=== PATIENT | male | born 1960 | race Two or more races ===

== ENCOUNTER 2016-07-08 09:23 | Inpatient (IN) | payer MEDICAID ==
[~2016-07-08] VITALS: Ht 167.6 cm; Wt 106.1 kg
[2016-07-08 10:27] LABS: Urine RBC None Seen /hpf (0 - 3)
[2016-07-08 10:43] LABS: Basophils # (auto) 0 uL; Basophils % (auto) 0.7 % (0.0-2.0); DEFINITIVE VIEW TRANSMISSION; Eosinophils # (auto) 0.7 uL; Eosinophils % (auto) 9.9 % (0.0-7.0); Hematocrit 44.2 % (41.0-53.0); Hemoglobin 15.3 g/dL (13.5-17.5); Lymphocytes # (auto) 1.9 uL; Lymphocytes % (auto) 26.1 % (10.0-50.0); Mean Corpuscular Hemoglobin 29.9 pg (28.0-32.0); Mean Corpuscular Hgb Conc. 34.5 g/dL (32.0-36.0); Mean Corpuscular Volume 86.6 fL (80.0-100.0); Mean Platelet Volume 8.8 fL (7.4-10.4); Monocytes # (auto) 0.5 uL; Monocytes % (auto) 6.2 % (0.0-12.0); Neutrophils # (auto) 4.2 uL; Neutrophils % (auto) 57.1 % (37.0-80.0); Platelet Count (auto) 243 10^3/uL (140-450); Red Cell Distribution Width 13.4 % (11.6-16.0); White Blood Cell 7.4 10^3/uL (4.4-10.8)
[2016-07-08 10:44] LABS: Urine Bilirubin Negative (Negative); Urine Blood Negative /uL (Negative); Urine Color Yellow (Yellow); Urine Glucose Normal (Normal); Urine Ketone Negative (Negative); Urine Mucus FEW (None Seen); Urine Nitrite Negative (Negative); Urine Squamous Epithelial Cell FEW /hpf (<5); Urine Urobilinogen Normal (Negative)
[2016-07-08 10:55] LABS: Albumin 3.6 g/dL (3.4-5.0); BUN/Creatinine Ratio 14.4; Bilirubin, Total 0.5 mg/dL (0.2-1.0); Calcium 8.1 mg/dL (8.5-10.1); Potassium 4.3 mmol/L (3.5-5.1); Total Protein 7.2 g/dL (6.4-8.2)
[2016-07-08] MEDS ORDERED: SODIUM CHLORIDE 0.9% 1,000 ML IVB ONE (10:59)
[2016-07-08 11:36] LABS: Magnesium 2.4 mg/dL (1.6-2.6)
[2016-07-08 11:46] LABS: INR 0.91 (0.9-1.15); Prothrombin Time 9.9 sec (9.37-12.3)
[2016-07-08] MEDS ORDERED: ONDANSETRON HCL 4 MG/2 ML VIAL ONE (13:09)
[2016-07-08] MEDS ORDERED: PROMETHAZINE HCL 25 MG/ML 1ML IV PRN (13:15)
[2016-07-08] MEDS ORDERED: TEMAZEPAM 15 MG CAP PO PRN (13:15)
[2016-07-08] MEDS ORDERED: MORPHINE SULF INJ 2 MG/ML SYRINGE 1ML IV PRN (13:15)
[2016-07-08] MEDS ORDERED: ONDANSETRON HCL 4 MG/2 ML VIAL IV ONE (13:15)
[2016-07-08] MEDS ORDERED: LORazepam 0.5 MG TAB PO PRN (13:15)
[2016-07-08] MEDS ORDERED: ACETAMINOPHEN 500 MG TAB PO PRN (13:15)
[2016-07-08] MEDS: SODIUM CHLORIDE 0.9% 1,000 ML IV SCH ×2 (13:16→22:50)
[2016-07-08] MEDS ORDERED: PANTOPRAZOLE 40 MG TAB PO ONE (13:30)
[2016-07-08] MEDS ORDERED: FAMOTIDINE 20 MG TAB PO ONE (13:30)
[2016-07-08] MEDS: HYDROcodone-ACET 5/325MG TAB PO PRN (13:47)
[2016-07-08 16:00] VITALS: BP 117/67
[2016-07-08 17:00] VITALS: BP 123/70
[2016-07-08] MEDS: metroNIDAZOLE 500MG/100ML 100 ML IV SCH (17:22)
[2016-07-08] MEDS: FAMOTIDINE 20 MG TAB PO SCH (21:34)
[2016-07-08 23:16] VITALS: BP_SYST 112; BP_SYST 128; BP_DIAS 76
[2016-07-09] MEDS: metroNIDAZOLE 500MG/100ML 100 ML IV SCH ×4 (02:00→11:00)
[2016-07-09] MEDS: HYDROcodone-ACET 5/325MG TAB PO PRN (03:22)
[2016-07-09 05:23] VITALS: BP 112/74
[2016-07-09 07:13] LABS: Basophils # (auto) 0 uL; Basophils % (auto) 0.6 % (0.0-2.0); Eosinophils # (auto) 0.7 uL; Eosinophils % (auto) 9.5 % (0.0-7.0); Hemoglobin 14.9 g/dL (13.5-17.5); Lymphocytes # (auto) 1.9 uL; Lymphocytes % (auto) 27.1 % (10.0-50.0); Mean Corpuscular Hemoglobin 30.5 pg (28.0-32.0); Mean Corpuscular Hgb Conc. 34.7 g/dL (32.0-36.0); Mean Corpuscular Volume 87.8 fL (80.0-100.0); Mean Platelet Volume 9.1 fL (7.4-10.4); Monocytes # (auto) 0.6 uL; Monocytes % (auto) 8.1 % (0.0-12.0); Neutrophils # (auto) 3.8 uL; Neutrophils % (auto) 54.7 % (37.0-80.0); Platelet Count (auto) 216 10^3/uL (140-450); Red Cell Distribution Width 13.4 % (11.6-16.0); White Blood Cell 6.9 10^3/uL (4.4-10.8)
[2016-07-09 07:21] LABS: Albumin 3.2 g/dL (3.4-5.0); BUN/Creatinine Ratio 14.5; Bilirubin, Total 0.7 mg/dL (0.2-1.0); Calcium 7.9 mg/dL (8.5-10.1); Potassium 4.1 mmol/L (3.5-5.1); Total Protein 6.2 g/dL (6.4-8.2)
[2016-07-09 08:00] VITALS: BP 112/74
[2016-07-09 09:00] VITALS: BP 132/65
[2016-07-09] MEDS: SODIUM CHLORIDE 0.9% 1,000 ML IV SCH (09:41)
[2016-07-09] MEDS: FAMOTIDINE 20 MG TAB PO SCH (09:41)
[2016-07-09] MEDS ORDERED: LEVOFLOXACIN 500MG 100 ML IV SCH (10:00)
[2016-07-09] MEDS ORDERED: PANTOPRAZOLE 40 MG TAB PO SCH (10:00)
[2016-07-09 11:52] VITALS: BP 111/75
== END 2016-07-09 12:45 | disposition home or self-care (01) | DRG 244 ==
LOC: ER 09:23 → OVERFLOW 09:24 → WEST WING 16:53
PROVIDERS: ADMIT Internal Medicine; ATTEND Internal Medicine
DX: K57.92 Diverticulitis of intestine, part unspecified, without perforation or abscess without bleeding (principal); E87.0 Hyperosmolality and hypernatremia; K76.89 Other specified diseases of liver; E87.1 Hypo-osmolality and hyponatremia; K57.30 Diverticulosis of large intestine without perforation or abscess without bleeding; K42.9 Umbilical hernia without obstruction or gangrene; J98.11 Atelectasis; K43.9 Ventral hernia without obstruction or gangrene; M47.814 Spondylosis without myelopathy or radiculopathy, thoracic region; N28.1 Cyst of kidney, acquired; Z82.49 Family history of ischemic heart disease and other diseases of the circulatory system; Z90.49 Acquired absence of other specified parts of digestive tract; Z87.442 Personal history of urinary calculi; M47.817 Spondylosis without myelopathy or radiculopathy, lumbosacral region; Z88.6 Allergy status to analgesic agent; Z88.8 Allergy status to other drugs, medicaments and biological substances
CPT/HCPCS: 36415; 71010; 74176; 76775; 80053; 81001; 82150; 83690; 83735; 85025; 85610; 85652; 85730; 87081; 87086; 93005; 94761; 96361; 96374; J1956; J2405; J3490

== ENCOUNTER 2023-06-07 10:49 | Inpatient (IN) | payer MEDICAID, OTHER ==
[~2023-06-07] VITALS: Ht 167.6 cm; Wt 98.4 kg
[~2023-06-07 10:49] MED LIST: ASPI-325 PO; ATOR20TA50 PO; BLOO1KIT60 XX; CARV3.1240 PO; CHOL1CAP21 PO; CLON0.2T PO; CLOP75TA70 PO; FLUT500M2; LANC-347 XX; METF-370 PO; MONT-8 PO
[2023-06-07 12:59] LABS: Basophils # (auto) 0.1 10 ^3/uL (0-0.2); Basophils % (auto) 0.5 % (0.0-2.0); Eosinophils # (auto) 0.1 10 ^3/uL (0-0.8); Eosinophils % (auto) 0.6 % (0.0-7.0); Hematocrit 47.7 % (41.0-53.0); Lymphocytes # (auto) 0.7 10 ^3/uL (0.4-5.4); Lymphocytes % (auto) 5.7 % (10.0-50.0); Mean Corpuscular Hemoglobin 29.2 pg (28.0-32.0); Mean Corpuscular Hgb Conc. 33.5 g/dL (32.0-36.0); Mean Corpuscular Volume 87.1 fL (80.0-100.0); Monocytes # (auto) 0.6 10 ^3/uL (0-1.3); Monocytes % (auto) 4.7 % (0.0-12.0); Neutrophils # (auto) 10.4 10 ^3/uL (1.6-8.6); Neutrophils % (auto) 88.5 % (37.0-80.0); Nucleated Red Blood Cells % 0.1 %; Red Blood Cells 5.48 10^6/uL (4.5-5.90); Red Cell Distribution Width 13.6 % (11.8-14.3); White Blood Cell 11.8 10^3/uL (4.4-10.8)
[2023-06-07 13:49] LABS: Alanine Aminotransferase 22 U/L (7-40); Alkaline Phosphatase 100 U/L (46-116); Anion Gap 6 (5-15); Aspartate Aminotransferase 17 U/L (13-40); BUN/Creatinine Ratio 21.3 (10.0-20.0); Bilirubin, Total 1.5 mg/dL (0.2-1.0); Blood Urea Nitrogen 20 mg/dL (9-23); Calcium 9.6 mg/dL (8.7-10.4); Carbon Dioxide 27 mmol/L (20-30); Chloride 105 mmol/L (98-107); Glucose 129 mg/dL (74-106); Potassium 4.4 mmol/L (3.5-5.1); Sodium 138 mmol/L (136-145); Total Protein 7.8 g/dL (5.7-8.2)
[2023-06-07 14:39] LABS: Magnesium 2.1 mg/dL (1.6-2.6)
[2023-06-07 18:49] LABS: INR 1.08 (0.9-1.15); Partial Thromboplastin Time 25.2 SEC (24.5-34.5); Prothrombin Time 11.4 sec (9.3-11.8)
[2023-06-07] MEDS ORDERED: DOCUSATE SOD 100 MG CAP PO PRN (20:00)
[2023-06-07] MEDS ORDERED: NITROGLYCERIN 0.4 MG SL TAB SL PRN (20:00)
[2023-06-07] MEDS ORDERED: ONDANSETRON HCL 4 MG/2 ML VIAL IV PRN (20:00)
[2023-06-07] MEDS ORDERED: PIPERACILLIN-TAZOB 3.375GM 100 ML IV SCH (20:00)
[2023-06-07] MEDS ORDERED: DEXTROSE (50%) 50ML SYRG IV PRN (20:00)
[2023-06-07] MEDS ORDERED: MORPHINE SULFATE INJ 2 MG/ml SYRG IV PRN ×2 (20:00)
[2023-06-07] MEDS ORDERED: hydrALAZINE HCL 20 MG/ML VL IV PRN (20:15)
[2023-06-07] MEDS: SODIUM CHLORIDE 0.9% 1,000 ML IVB ONE (21:51)
[2023-06-07] MEDS ORDERED: metroNIDAZOLE 500MG/100ML 100 ML IV SCH (22:00)
[2023-06-07] MEDS: ATORVASTATIN 20 MG TAB PO SCH (22:02)
[2023-06-07] MEDS: ONDANSETRON HCL 4 MG/2 ML VIAL IV ONE (22:04)
[2023-06-07] MEDS: SODIUM CHLORIDE 0.9% 1,000 ML IV SCH (22:04)
[2023-06-07] MEDS: PIPERACILLIN-TAZOB 3.375GM 100 ML IV ONE (22:04)
[2023-06-08] VITALS (10 sets, daily range): BP systolic 106–127; BP diastolic 58–89; PULSE 60–102; RESP 16–19; TEMP 97.9–98.4; O2SAT 91–99
[2023-06-08] MEDS: PIPERACILLIN-TAZOB 3.375GM 100 ML IV SCH (05:11)
[2023-06-08] MEDS: ACCU-CHEK COMFORT CURVE STRIP VI SCH (05:33)
[2023-06-08] MEDS: InsuLIN REG 1unit/0.01ml Soln (100units/ml) SC SCH (05:34)
[2023-06-08 06:13] LABS: Anion Gap 8 (5-15); Basophils # (auto) 0 10 ^3/uL (0-0.2); Basophils % (auto) 0.2 % (0.0-2.0); Carbon Dioxide 25 mmol/L (20-30); Chloride 107 mmol/L (98-107); Eosinophils # (auto) 0.2 10 ^3/uL (0-0.8); Eosinophils % (auto) 2.4 % (0.0-7.0); Hematocrit 44.6 % (41.0-53.0); Hemoglobin 15.2 g/dL (13.5-17.5); Lymphocytes # (auto) 1.3 10 ^3/uL (0.4-5.4); Lymphocytes % (auto) 18.1 % (10.0-50.0); Mean Corpuscular Hemoglobin 29.9 pg (28.0-32.0); Mean Corpuscular Hgb Conc. 34.1 g/dL (32.0-36.0); Mean Corpuscular Volume 87.6 fL (80.0-100.0); Monocytes # (auto) 0.9 10 ^3/uL (0-1.3); Monocytes % (auto) 11.7 % (0.0-12.0); Neutrophils # (auto) 4.9 10 ^3/uL (1.6-8.6); Neutrophils % (auto) 67.6 % (37.0-80.0); Nucleated Red Blood Cells % 0.2 %; Potassium 3.6 mmol/L (3.5-5.1); Red Blood Cells 5.09 10^6/uL (4.5-5.90); Red Cell Distribution Width 13.6 % (11.8-14.3); Sodium 140 mmol/L (136-145); White Blood Cell 7.3 10^3/uL (4.4-10.8)
[2023-06-08 06:15] LABS: Calcium 8.9 mg/dL (8.5-10.1)
[2023-06-08 06:20] LABS: BUN/Creatinine Ratio 18.3 (10.0-20.0); Blood Urea Nitrogen 17 mg/dL (9-23); Glucose 128 mg/dL (74-106)
[2023-06-08] MEDS ORDERED: cefTRIAXone 1GM/50ML D5W 50 ML IV SCH (09:00)
[2023-06-08] MEDS: CARVEDILOL 3.125 MG TAB PO SCH (10:00)
[2023-06-08] MEDS: PANTOPRAZOLE 40 MG/10 ML VIAL INJ IV SCH (10:26)
[2023-06-08 10:37] LABS: Phosphorus 2.9 mg/dL (2.4-5.1)
[2023-06-08 11:02] LABS: Magnesium 2.4 mg/dL (1.6-2.6)
[2023-06-08] MEDS: LEVALBUTEROL HCL 1.25 MG/3 ML NEB NEB SCH (12:00)
[2023-06-08] MEDS: IPRATROPIUM BROM 0.5 MG/2.5ML INH SOL NEB SCH (12:00)
[2023-06-08] MEDS: ASPirin 81 mg TAB PO ONE (12:47)
[2023-06-08] MEDS ORDERED: LEVALBUTEROL HCL 1.25 MG/3 ML NEB NEB PRN (13:15)
[2023-06-08] MEDS ORDERED: IPRATROPIUM BROM 0.5 MG/2.5ML INH SOL NEB PRN (13:15)
[2023-06-08 15:49] LABS: Urine Bacteria None Seen /hpf (None Seen)
[2023-06-08 16:05] LABS: Urine Blood Negative /uL (Negative); Urine Clarity Clear (Clear); Urine Color Light-Yellow (Yellow); Urine Protein, UAD Negative (Negative); Urine Specific Gravity 1.028 (1.001-1.035); Urine Urobilinogen Normal (Negative); Urine WBC 1 /hpf (0 - 3); Urine pH 5.5 (5.0-9.0)
[2023-06-08 16:24] LABS: Amphetamine Screen, Urine Neg (NEGATIVE); Barbiturate Scree,Urine Neg (NEGATIVE); Cocaine Screen, Urine Neg (NEGATIVE)
[2023-06-08 16:25] LABS: Benzodiazephine Screen, Urine Neg (NEGATIVE); Cannabinoid Screen, Urine Neg (NEGATIVE); Opiate Scree,Urine Neg (NEGATIVE); Phencyclidine Screen, Urine Neg (NEGATIVE)
[2023-06-08] MEDS: MONTELUKAST SODIUM 10 MG TAB PO SCH (21:27)
[2023-06-09] VITALS (11 sets, daily range): BP systolic 106–145; BP diastolic 55–72; PULSE 56–65; RESP 16–20; TEMP 97.5–99; O2SAT 95–99
[2023-06-09 07:05] LABS: Alanine Aminotransferase 19 U/L (7-40); Albumin 3.8 g/dL (3.2-4.8); Alkaline Phosphatase 72 U/L (46-116); Anion Gap 3 (5-15); Aspartate Aminotransferase 17 U/L (13-40); BUN/Creatinine Ratio 10.3 (10.0-20.0); Blood Urea Nitrogen 10 mg/dL (9-23); Calcium 8.5 mg/dL (8.7-10.4); Carbon Dioxide 28 mmol/L (20-30); Chloride 109 mmol/L (98-107); Glucose 126 mg/dL (74-106); Magnesium 2.4 mg/dL (1.6-2.6); Potassium 4.1 mmol/L (3.5-5.1); Sodium 140 mmol/L (136-145)
[2023-06-09 07:06] LABS: Bilirubin, Total 1.1 mg/dL (0.2-1.0)
[2023-06-09 07:30] LABS: Basophils # (auto) 0 10 ^3/uL (0-0.2); Basophils % (auto) 0.3 % (0.0-2.0); Eosinophils # (auto) 0.3 10 ^3/uL (0-0.8); Eosinophils % (auto) 5.2 % (0.0-7.0); Hematocrit 41.7 % (41.0-53.0); Lymphocytes # (auto) 1.6 10 ^3/uL (0.4-5.4); Lymphocytes % (auto) 24.3 % (10.0-50.0); Mean Corpuscular Hemoglobin 29.5 pg (28.0-32.0); Mean Corpuscular Hgb Conc. 33.5 g/dL (32.0-36.0); Mean Corpuscular Volume 87.9 fL (80.0-100.0); Monocytes # (auto) 0.7 10 ^3/uL (0-1.3); Monocytes % (auto) 10.1 % (0.0-12.0); Neutrophils % (auto) 60.1 % (37.0-80.0); Nucleated Red Blood Cells % 0.1 %; Red Blood Cells 4.75 10^6/uL (4.5-5.90); Red Cell Distribution Width 13.9 % (11.8-14.3); White Blood Cell 6.7 10^3/uL (4.4-10.8)
[2023-06-09 07:52] LABS: Phosphorus 2.8 mg/dL (2.4-5.1)
[2023-06-09] MEDS: ASPirin 81 mg TAB PO SCH (10:30)
[2023-06-09] MEDS: CALCIUM GLUC 1,000mg/50ml-NS 50 ML IV ONE (20:50)
[2023-06-10] VITALS (10 sets, daily range): BP systolic 126–140; BP diastolic 68–82; PULSE 54–70; RESP 16–18; TEMP 97.8–98.4; O2SAT 95–98
[2023-06-10 05:35] LABS: Basophils # (auto) 0 10 ^3/uL (0-0.2); Basophils % (auto) 0.4 % (0.0-2.0); Eosinophils # (auto) 0.4 10 ^3/uL (0-0.8); Eosinophils % (auto) 4.3 % (0.0-7.0); Hematocrit 42.4 % (41.0-53.0); Hemoglobin 14.3 g/dL (13.5-17.5); Lymphocytes # (auto) 1.8 10 ^3/uL (0.4-5.4); Lymphocytes % (auto) 21.9 % (10.0-50.0); Mean Corpuscular Hemoglobin 29.5 pg (28.0-32.0); Mean Corpuscular Hgb Conc. 33.9 g/dL (32.0-36.0); Monocytes # (auto) 0.7 10 ^3/uL (0-1.3); Monocytes % (auto) 8.6 % (0.0-12.0); Neutrophils # (auto) 5.5 10 ^3/uL (1.6-8.6); Neutrophils % (auto) 64.8 % (37.0-80.0); Nucleated Red Blood Cells % 0.1 %; Red Blood Cells 4.87 10^6/uL (4.5-5.90); Red Cell Distribution Width 13.3 % (11.8-14.3); White Blood Cell 8.4 10^3/uL (4.4-10.8)
[2023-06-10] MEDS: PIPERACILLIN-TAZOB 3.375GM 100 ML IV SCH (06:29)
[2023-06-10 06:35] LABS: Alanine Aminotransferase 23 U/L (7-40); Alkaline Phosphatase 81 U/L (46-116); Chloride 106 mmol/L (98-107); Potassium 4.1 mmol/L (3.5-5.1); Sodium 140 mmol/L (136-145)
[2023-06-10 06:49] LABS: Albumin 4.1 g/dL (3.2-4.8); Anion Gap 10 (5-15); Aspartate Aminotransferase 38 U/L (13-40); BUN/Creatinine Ratio 7.5 (10.0-20.0); Bilirubin, Total 1.3 mg/dL (0.2-1.0); Blood Urea Nitrogen 7 mg/dL (9-23); Calcium 8.9 mg/dL (8.5-10.1); Carbon Dioxide 24 mmol/L (20-30); Glucose 101 mg/dL (74-106); Total Protein 6.3 g/dL (5.7-8.2)
[2023-06-10 07:03] LABS: Lipase 37 U/L (12-53)
[2023-06-11] VITALS (9 sets, daily range): BP systolic 111–139; BP diastolic 69–77; PULSE 52–93; RESP 16–18; TEMP 36.6; O2SAT 93–99
[2023-06-11 05:29] LABS: Basophils # (auto) 0 10 ^3/uL (0-0.2); Basophils % (auto) 0.6 % (0.0-2.0); Eosinophils # (auto) 0.4 10 ^3/uL (0-0.8); Eosinophils % (auto) 5.9 % (0.0-7.0); Hematocrit 42.2 % (41.0-53.0); Hemoglobin 14.3 g/dL (13.5-17.5); Lymphocytes # (auto) 1.9 10 ^3/uL (0.4-5.4); Lymphocytes % (auto) 24.8 % (10.0-50.0); Mean Corpuscular Hemoglobin 29.3 pg (28.0-32.0); Mean Corpuscular Volume 86.2 fL (80.0-100.0); Monocytes # (auto) 0.7 10 ^3/uL (0-1.3); Monocytes % (auto) 9.8 % (0.0-12.0); Neutrophils # (auto) 4.5 10 ^3/uL (1.6-8.6); Neutrophils % (auto) 58.9 % (37.0-80.0); Nucleated Red Blood Cells % 0.1 %; Red Blood Cells 4.89 10^6/uL (4.5-5.90); Red Cell Distribution Width 13.5 % (11.8-14.3); White Blood Cell 7.6 10^3/uL (4.4-10.8)
[2023-06-11 05:55] LABS: Alanine Aminotransferase 20 U/L (7-40); Alkaline Phosphatase 82 U/L (46-116); Anion Gap 6 (5-15); Aspartate Aminotransferase 21 U/L (13-40); BUN/Creatinine Ratio 6.1 (10.0-20.0); Bilirubin, Total 2.1 mg/dL (0.2-1.0); Blood Urea Nitrogen 6 mg/dL (9-23); Carbon Dioxide 27 mmol/L (20-30); Chloride 107 mmol/L (98-107); Glucose 106 mg/dL (74-106); Lipase 41 U/L (12-53); Potassium 4.2 mmol/L (3.5-5.1); Sodium 140 mmol/L (136-145); Total Protein 6.2 g/dL (5.7-8.2)
[2023-06-11] MEDS ORDERED: LEVO500T91 PO (11:54)
== END 2023-06-11 14:00 | disposition home or self-care (01) | DRG 249 ==
LOC: ER 10:49 → OVERFLOW 20:06 → WEST WING 06-08 04:37
PROVIDERS: ADMIT Internal Medicine; ATTEND Internal Medicine
DX: K52.9 Noninfective gastroenteritis and colitis, unspecified (principal); E11.9 Type 2 diabetes mellitus without complications; E66.9 Obesity, unspecified; I10 Essential (primary) hypertension; E78.00 Pure hypercholesterolemia, unspecified; K57.30 Diverticulosis of large intestine without perforation or abscess without bleeding; J44.9 Chronic obstructive pulmonary disease, unspecified; N40.0 Benign prostatic hyperplasia without lower urinary tract symptoms; Z83.3 Family history of diabetes mellitus; Z86.73 Personal history of transient ischemic attack (TIA), and cerebral infarction without residual deficits; Z87.442 Personal history of urinary calculi; Z88.6 Allergy status to analgesic agent; Z90.49 Acquired absence of other specified parts of digestive tract; Z82.5 Family history of asthma and other chronic lower respiratory diseases; Z82.49 Family history of ischemic heart disease and other diseases of the circulatory system; Z87.891 Personal history of nicotine dependence; Z68.35 Body mass index [BMI] 35.0-35.9, adult
CPT/HCPCS: 36415; 71045; 74177; 76705; 80048; 80053; 80061; 80307; 81001; 82306; 82607; 82962; 83036; 83605; 83690; 83735; 83880; 84100; 84443; 84484; 85025; 85048; 85610; 85730; 87177; 87493; 93005; C9113; G0378; J2405; J2543

== ENCOUNTER 2023-10-24 08:24 | Inpatient (IN) | payer OTHER, MEDICAID ==
[~2023-10-24] VITALS: Ht 167.6 cm; Wt 99.5 kg
[~2023-10-24 08:24] MED LIST changes: +LEVO500T91 PO
[2023-10-24 09:31] LABS: Basophils # (auto) 0.1 10 ^3/uL (0-0.2); Basophils % (auto) 1.1 % (0.0-2.0); Eosinophils # (auto) 0.4 10 ^3/uL (0-0.8); Eosinophils % (auto) 6.9 % (0.0-7.0); Hematocrit 46.7 % (41.0-53.0); Hemoglobin 15.9 g/dL (13.5-17.5); Lymphocytes # (auto) 1.6 10 ^3/uL (0.4-5.4); Lymphocytes % (auto) 28.1 % (10.0-50.0); Mean Corpuscular Hemoglobin 30.1 pg (28.0-32.0); Mean Corpuscular Hgb Conc. 34.1 g/dL (32.0-36.0); Mean Corpuscular Volume 88.3 fL (80.0-100.0); Monocytes # (auto) 0.5 10 ^3/uL (0-1.3); Monocytes % (auto) 8.4 % (0.0-12.0); Neutrophils # (auto) 3.2 10 ^3/uL (1.6-8.6); Neutrophils % (auto) 55.5 % (37.0-80.0); Nucleated Red Blood Cells % 0.1 %; Platelet Count (auto) 222 10^3/uL (140-450); Red Blood Cells 5.29 10^6/uL (4.5-5.90); White Blood Cell 5.8 10^3/uL (4.4-10.8)
[2023-10-24 09:45] LABS: Chloride 108 mmol/L (98-107); Potassium 4.6 mmol/L (3.5-5.1); Sodium 142 mmol/L (136-145)
[2023-10-24 09:46] LABS: Anion Gap 9 (5-15); Calcium 9.4 mg/dL (8.7-10.4); Carbon Dioxide 25 mmol/L (20-30)
[2023-10-24 09:51] LABS: BUN/Creatinine Ratio 16.7 (10.0-20.0); Blood Urea Nitrogen 16 mg/dL (9-23); Glucose 128 mg/dL (74-106)
[2023-10-24] MEDS ORDERED: NITROGLYCERIN 0.4 MG SL TAB SL PRN (12:30)
[2023-10-24] MEDS ORDERED: [UNRECOGNIZED DRUG - OTHER] PO SCH (13:15)
[2023-10-24] MEDS ORDERED: CHOLECALCIFEROL PO SCH (13:15)
[2023-10-24] MEDS ORDERED: cloNIDine HCL 0.1 MG TAB PO PRN (13:45)
[2023-10-24 15:06] LABS: Urine Bacteria None Seen /hpf (None Seen)
[2023-10-24 15:15] LABS: Urine Blood Negative /uL (Negative); Urine Clarity Clear (Clear); Urine Color Light-Yellow (Yellow); Urine Mucus FEW (None Seen); Urine Protein, UAD Negative (Negative); Urine Specific Gravity 1.021 (1.001-1.035); Urine Urobilinogen Normal (Negative); Urine WBC 1 /hpf (0 - 3); Urine pH 5.5 (5.0-9.0)
[2023-10-24] MEDS ORDERED: LORazepam 2MG/ML-1ML VIAL IV PRN (18:45)
[2023-10-24] MEDS ORDERED: DEXTROSE (50%) 50ML SYRG IV PRN (20:15)
[2023-10-24] MEDS: InsuLIN REG 1unit/0.01ml Soln (100units/ml) SC SCH (21:58)
[2023-10-24] MEDS: ACCU-CHEK COMFORT CURVE STRIP VI SCH (21:58)
[2023-10-24] MEDS: ATORVASTATIN 20 MG TAB PO SCH (21:58)
[2023-10-24] MEDS ORDERED: SUCR1TAB PO (22:00)
[2023-10-24] MEDS ORDERED: [UNRECOGNIZED DRUG - CODE] PO (22:00)
[2023-10-24] MEDS ORDERED: ATORVASTATIN 20 MG TAB PO SCH (22:00)
[2023-10-24 22:04] VITALS: BP 136/78; PULSE 54; RESP 19; TEMP 98.1; O2SAT 99
[2023-10-24 22:54] VITALS: PULSE 54; RESP 19; O2SAT 99
[2023-10-25] VITALS (8 sets, daily range): BP systolic 122–134; BP diastolic 59–78; PULSE 52–71; RESP 16–18; TEMP 97.3–98.7; O2SAT 95–99
[2023-10-25 06:24] LABS: Chloride 108 mmol/L (98-107); Potassium 4.2 mmol/L (3.5-5.1); Sodium 141 mmol/L (136-145)
[2023-10-25 06:25] LABS: Anion Gap 5 (5-15); Carbon Dioxide 28 mmol/L (20-30)
[2023-10-25 06:30] LABS: BUN/Creatinine Ratio 15.4 (10.0-20.0); Blood Urea Nitrogen 14 mg/dL (9-23); Glucose 115 mg/dL (74-106); Triglycerides 155 mg/dL (< 150)
[2023-10-25 06:31] LABS: LDL Cholesterol 116 mg/dL (< 100)
[2023-10-25 06:32] LABS: Cholesterol 169 mg/dL (< 200); HDL Cholesterol 30 mg/dL (40-59)
[2023-10-25 06:40] LABS: Basophils # (auto) 0 10 ^3/uL (0-0.2); Basophils % (auto) 0.7 % (0.0-2.0); Eosinophils # (auto) 0.5 10 ^3/uL (0-0.8); Eosinophils % (auto) 6.6 % (0.0-7.0); Hematocrit 43.9 % (41.0-53.0); Hemoglobin 15.3 g/dL (13.5-17.5); Lymphocytes # (auto) 1.8 10 ^3/uL (0.4-5.4); Lymphocytes % (auto) 25.7 % (10.0-50.0); Mean Corpuscular Hemoglobin 30.8 pg (28.0-32.0); Mean Corpuscular Hgb Conc. 34.8 g/dL (32.0-36.0); Mean Corpuscular Volume 88.5 fL (80.0-100.0); Monocytes # (auto) 0.5 10 ^3/uL (0-1.3); Monocytes % (auto) 7.9 % (0.0-12.0); Neutrophils # (auto) 4.1 10 ^3/uL (1.6-8.6); Neutrophils % (auto) 59.1 % (37.0-80.0); Nucleated Red Blood Cells % 0.1 %; Platelet Count (auto) 203 10^3/uL (140-450); Red Blood Cells 4.96 10^6/uL (4.5-5.90); White Blood Cell 6.9 10^3/uL (4.4-10.8)
[2023-10-25 06:48] LABS: Calcium 9.2 mg/dL (8.7-10.4)
[2023-10-25] MEDS: ASPirin-EC 81 mg tab PO SCH (10:32)
[2023-10-25] MEDS: CARVEDILOL 3.125 MG TAB PO SCH (10:33)
[2023-10-25] MEDS: MONTELUKAST SODIUM 10 MG TAB PO SCH (10:34)
[2023-10-25] MEDS: CLOPIDOGREL BISULFATE 75 MG TAB PO SCH (10:34)
[2023-10-25] MEDS: LORazepam 2MG/ML-1ML VIAL IV ONE (11:00)
[2023-10-26] VITALS (10 sets, daily range): BP systolic 116–141; BP diastolic 67–80; PULSE 59–78; RESP 17–18; TEMP 97.7–98.2; O2SAT 95–100
[2023-10-26 07:06] LABS: RPR Non Reactive (Non Reactive)
[2023-10-27 05:00] VITALS: BP 106/66; PULSE 57; RESP 18; TEMP 97.6; O2SAT 96
[2023-10-27 09:00] VITALS: BP 125/68; PULSE 57; RESP 17; TEMP 97.5; O2SAT 99
[2023-10-27 13:00] VITALS: BP 101/65; PULSE 69; RESP 17; TEMP 98; O2SAT 96
[2023-10-27] MEDS ORDERED: CARV-214 OR (13:04)
[2023-10-27 17:00] VITALS: BP 128/79; PULSE 61; RESP 18; TEMP 98.1; O2SAT 97
== END 2023-10-27 18:50 | disposition home or self-care (01) | DRG 194 ==
LOC: ER 08:24 → OVERFLOW 12:33 → WEST WING 21:24 → TELE-WESTW 10-25 20:21
PROVIDERS: ADMIT Nurse Practitioner Family; ATTEND Nurse Practitioner Acute Care
DX: I11.0 Hypertensive heart disease with heart failure (principal); G45.9 Transient cerebral ischemic attack, unspecified; I50.31 Acute diastolic (congestive) heart failure; E11.65 Type 2 diabetes mellitus with hyperglycemia; E78.5 Hyperlipidemia, unspecified; F17.200 Nicotine dependence, unspecified, uncomplicated; E66.9 Obesity, unspecified; E03.9 Hypothyroidism, unspecified; Z90.49 Acquired absence of other specified parts of digestive tract; Z87.442 Personal history of urinary calculi; Z86.73 Personal history of transient ischemic attack (TIA), and cerebral infarction without residual deficits; Z82.49 Family history of ischemic heart disease and other diseases of the circulatory system; Z82.5 Family history of asthma and other chronic lower respiratory diseases; Z83.3 Family history of diabetes mellitus; Z68.35 Body mass index [BMI] 35.0-35.9, adult; Z79.82 Long term (current) use of aspirin; Z79.899 Other long term (current) drug therapy
CPT/HCPCS: 36415; 70450; 70551; 80048; 80061; 81001; 82962; 84443; 85025; 86592; 93005; 93306; 93886; 97110; 97116; 97163; 97530; 99291; G0378; J1815